=== PATIENT | female | born 1950 | race Caucasian/White ===

== ENCOUNTER 2020-02-27 21:18 | Inpatient (IN) | payer MEDICARE, OTHER ==
[~2020-02-27] VITALS: Ht 162.6 cm; Wt 37.6 kg
--- NOTE | 2020-02-27 21:38 | NUR ---
BIBRA FOR EVAL FOR S/P UNWITNESS FALL. PATIENT IS A0X4. DENIES ANY PAIN OR DISCOMFORT AT THIS TIME. PATIENT REPORTED FALL AROUND EVENING AND UNSURE IF SHE HIT HER HEAD OR NOT. PATIENTIIS PLACE IN BED 1,PATIENT IS PLACED ON MONITOR. WILL CONT TO MONITOR.
--- NOTE | 2020-02-27 21:38 | NUR ---
ECG tech at bed side
--- NOTE | 2020-02-27 21:42 | NUR ---
lab and x ray at bed side
[2020-02-27 21:58] LABS: BASOPHILS # (AUTO) 0.1 /CMM (0.0-0.2); BASOPHILS % (AUTO) 1.1 % (0.0-2.0); EOSINOPHILS % (AUTO) 2.2 % (0.0-6.0); HEMATOCRIT 34 % (33-45); HEMOGLOBIN 11.1 g/dL (11.5-14.8); LYMPHOCYTES # (AUTO) 1.1 /CMM (0.8-4.8); LYMPHOCYTES % (AUTO) 8.2 % (20.0-44.0); MEAN CORPUSCULAR HGB CONC 33 g/dl (31.0-36.0); MEAN CORPUSCULAR VOLUME 90 fL (82-100); MONOCYTES # (AUTO) 1.3 /CMM (0.1-1.30); MONOCYTES % (AUTO) 9.8 % (2.0-12.0); NEUTROPHILS # (AUTO) 10.3 /CMM (1.8-8.9); NEUTROPHILS % (AUTO) 78.7 % (43.0-81.0); PLATELET COUNT (AUTO) 236 /CMM (150-450); RED BLOOD CELL COUNT(AUTO) 3.76 MIL/uL (4.0-5.2); WHITE BLOOD COUNT (AUTO) 13.1 K/uL (4.3-11.0)
[2020-02-27] MEDS ORDERED: IV NS 0.9% 500 ML BAG IV ONE (22:00)
--- NOTE | 2020-02-27 22:04 | NUR ---
URINE COLLETECTED VIA STRAIGHT CATH AND SENT TO LAB.
--- NOTE | 2020-02-27 22:05 | NUR ---
IV STARTED ON LEFT AC SALINE #18G, NS IS RUNNING WELL.
[2020-02-27 22:10] LABS: CALCIUM, SERUM 8.5 mg/dL (8.5-10.1); CREATININE 0.5 mg/dL (0.6-1.3); POTASSIUM 4.1 mmol/L (3.5-5.1)
[2020-02-27 22:11] LABS: APPEARANCE,URINE CLOUDY (CLEAR); BILIRUBIN,URINE NEGATIVE (NEGATIVE); BLOOD, URINE NEGATIVE Ery/uL (NEGATIVE); COLOR,URINE YELLOW (YELLOW); KETONES,URINE NEGATIVE (NEGATIVE); LEUKOCYTE ESTERASE ,URINE MODERATE (NEGATIVE); NITRITE, URINE NEGATIVE (NEGATIVE); PROTEIN,URINE NEGATIVE (NEGATIVE); UGLUCOSE NEGATIVE (NEGATIVE); UROBILINOGEN,URINE 0.2 EU/dL (0.2)
--- NOTE | 2020-02-27 22:24 | NUR ---
back from ct
[2020-02-27 22:26] LABS: ALANINE AMINOTRANSFERASE 21 U/L (12-78); ALBUMIN 2.7 g/dL (3.4-5.0); ALKALINE PHOSPHATASE 90 U/L (46-116); ASPARTATE AMINOTRANSFERASE 20 U/L (15-37); BILIRUBIN,DIRECT 0.1 mg/dL (0.0-0.2); BILIRUBIN,TOTAL 0.3 mg/dL (0.2-1.0); LIPASE 212 U/L (73-393); TOTAL PROTEIN, SERUM 6.1 g/dL (6.4-8.2)
[2020-02-27 22:42] LABS: RBC,URINE 0-2 /HPF (0-2)
[2020-02-27 22:43] LABS: BACTERIA,URINE Many /HPF (None Seen); SQUAMOUS EPITHELIAL CELL,UR Few /HPF (None Seen); URINE AMORPHOUS URATE Many /HPF (None Seen); YEAST,URINE Many /HPF (None Seen)
--- NOTE | 2020-02-27 23:45 | NUR ---
CALLED THE [facility] ASKED FOR THE MED'S LIST TO BE FAXED OVER
[2020-02-28] VITALS (8 sets, daily range): BP systolic 92–142; BP diastolic 54–80
[2020-02-28] MEDS ORDERED: POLY17PO4 PO (00:25)
[2020-02-28] MEDS ORDERED: ASCO500W7 PO (00:25)
[2020-02-28] MEDS ORDERED: ASPI-1169 PO (00:25)
[2020-02-28] MEDS ORDERED: CHOL3000 PO (00:25)
[2020-02-28] MEDS ORDERED: METO25TA6 PO (00:25)
[2020-02-28] MEDS ORDERED: FERR325T28 PO (00:25)
[2020-02-28] MEDS ORDERED: ATOR80TA PO (00:25)
[2020-02-28] MEDS ORDERED: MULT-754 PO (00:25)
[2020-02-28] MEDS ORDERED: RISP1TAB7 PO (00:25)
[2020-02-28] MEDS ORDERED: CEFTRIAXONE 1GM BAG (ER ONLY) 50 ML IV ONE (00:59)
[2020-02-28] MEDS ORDERED: CEFTRIAXONE 1 G in IV D5W 50 ML IV ONE (01:00)
[2020-02-28] MEDS ORDERED: IV NS 0.9% 1,000 ML IV ONE (01:00)
--- NOTE | 2020-02-28 01:04 | NUR ---
BED ASSIGNMENT 304-2
--- NOTE | 2020-02-28 01:16 | NUR ---
Gave report to nurse Fox for ethan.
--- NOTE | 2020-02-28 02:15 | NUR ---
GRAIN PICKER: ADMISSION 69 y/o female transferred from ED by bed. Patient is lethargic upon initial assessment, does not respond verbally, able to open eyes. Skin assessment done, sacrum redness, Mepilex foam applied. Patient is on room air with Oxygen sat. in high 90's. Fall;Aspiration; Skin precaution maintained.
--- NOTE | 2020-02-28 02:18 | NUR ---
PATIENT TRANSFERED TO 3RD FLOOR ROOM 304 UNDER ACLS PROTOCOL.
[2020-02-28] MEDS ORDERED: IV D5/0.45 NACL 1,000 ML IV PRN (03:00)
[2020-02-28] MEDS ORDERED: CEFEPIME 1 GM in IV D5W 50 ML IV SCH (03:00)
[2020-02-28] MEDS ORDERED: ONDANSETRON HCL/PF 4 MG/2 ML VIAL IV PRN (03:00)
[2020-02-28] MEDS ORDERED: ACETAMINOPHEN 325 MG TABLET PO PRN ×2 (03:00)
--- NOTE | 2020-02-28 03:17 | NUR ---
ADMISSION ORDERS Called spoke with Keyon Nogueira. Reviewed home medications with MD, labs in AM, IVF/Abx telephone/read back orders with MD. Orders faxed to Pharmacy. Per Dr. Angeles he will come in am.
[2020-02-28] MEDS ORDERED: Z GUARD REMEDY 2 OZ OINT TP PRN (05:00)
[2020-02-28] MEDS ORDERED: CEFEPIME 1 GM VIAL ONE (05:09)
--- NOTE | 2020-02-28 06:45 | NUR ---
ELECTRONIC WARFARE OFFICER: END OF SHIFT REPORT Patient in bed. This morning at 0530 LOC improving A/O x1 (previous Lethargic) slow to respond verbally when asked, follow simple commands. Sinus Tach HR 106 in the Tele monitor. IVF infusing, on IV Abx. Afebrile. Denies pain, no c/o N/V. Plan for PT/ST/Wound consult. Fall; Aspiration; Skin precaution maintained. Will endorse to oncoming RN.
[2020-02-28 06:46] LABS: BASOPHILS # (AUTO) 0.1 /CMM (0.0-0.2); BASOPHILS % (AUTO) 1.3 % (0.0-2.0); HEMATOCRIT 34 % (33-45); HEMOGLOBIN 11.3 g/dL (11.5-14.8); LYMPHOCYTES % (AUTO) 10.2 % (20.0-44.0); MEAN CORPUSCULAR HGB CONC 33 g/dl (31.0-36.0); MEAN CORPUSCULAR VOLUME 91 fL (82-100); MONOCYTES % (AUTO) 9.6 % (2.0-12.0); NEUTROPHILS # (AUTO) 7.7 /CMM (1.8-8.9); NEUTROPHILS % (AUTO) 75.9 % (43.0-81.0); PLATELET COUNT (AUTO) 240 /CMM (150-450); RED BLOOD CELL COUNT(AUTO) 3.74 MIL/uL (4.0-5.2); WHITE BLOOD COUNT (AUTO) 10.2 K/uL (4.3-11.0)
[2020-02-28 07:14] LABS: ALBUMIN 2.6 g/dL (3.4-5.0); BILIRUBIN,TOTAL 0.2 mg/dL (0.2-1.0); CALCIUM, SERUM 8.4 mg/dL (8.5-10.1); CREATININE 0.5 mg/dL (0.6-1.3); POTASSIUM 3.8 mmol/L (3.5-5.1); TOTAL PROTEIN, SERUM 6.1 g/dL (6.4-8.2)
--- NOTE | 2020-02-28 07:15 | NUR ---
ms rn received on bed, awake,oriented x1,somewhat lethargic, not in any form of distress, respirations even and unlabored,no sob noted,no evidence of pain at this time,all needs attended.
[2020-02-28 07:17] LABS: THYROID STIMULATING HORMONE 1.662 uIU/mL (0.358-3.74)
[2020-02-28] MEDS ORDERED: FLUT16SP16 NS (07:44)
[2020-02-28] MEDS ORDERED: BISA10SU11 RC (07:44)
[2020-02-28] MEDS ORDERED: ASCO-495 PO (07:44)
[2020-02-28] MEDS ORDERED: MINE133E RC (07:44)
[2020-02-28] MEDS ORDERED: MAGN400O6 PO (07:44)
[2020-02-28] MEDS ORDERED: MULT-447 PO (07:44)
[2020-02-28] MEDS ORDERED: ACET-868 PO (07:45)
--- NOTE | 2020-02-28 08:20 | NUR ---
MS LUNSFORD BREAKFAST SERVED,TOLERATED WELL, PATIENT NEEDS SOLID FOODS, WILL ORDER LATER.
--- NOTE | 2020-02-28 08:49 | NUR ---
WOUND CARE CONSULT: PT PRESENTS WITH SACRAL SCAR, PRESENT ON ADMISSION. PT IS VERY THIN AND BONY. RECOMMENDATIONS MADE FOR SKIN PROTECTION. DISCUSSED WITH NURSING STAFF. PT IS ON VIDA ISOFLEX LOW AIRLOSS BED. WILL SEE PRN. ZULETA IN AGREEMENT WITH PLAN OF CARE. Addendum: 02/28/20 at 0850 by AGUS SHEIKH WNDNU Amended: Links added.
--- NOTE | 2020-02-28 10:25 | NUR ---
MS RN WAS SEEN BY DR. ANTONIO Rizo/ ORDERS MADE AND CARRIED OUT.
[2020-02-28] MEDS: FERROUS SULFATE (325 MG) 325 MG/TAB TABLET PO SCH ×2 (10:45→17:39)
[2020-02-28] MEDS: ASPIRIN 81 MG TAB.CHEW PO SCH (10:45)
[2020-02-28] MEDS: PANTOPRAZOLE 40 MG TABLET.DR PO SCH (10:49)
[2020-02-28] MEDS: CHOLECALCIFEROL 1,000 UNIT TABLET (VIT D3) PO SCH (10:49)
[2020-02-28] MEDS: ASCORBIC ACID 500 MG TABLET PO SCH (10:50)
[2020-02-28] MEDS: MULTIVIT W/MINERALS 1 TAB TABLET PO SCH (10:50)
[2020-02-28] MEDS: risperiDONE 1 MG TABLET PO SCH ×2 (10:50→17:40)
[2020-02-28] MEDS: POLYETHYLENE GLYCOL 3350 17 GM POWD.PACK PO SCH (10:50)
[2020-02-28] MEDS: METOPROLOL TARTRATE 25 MG TABLET PO SCH ×2 (10:51→17:40)
[2020-02-28] MEDS: ENSURE ENLIVE CHOC 237 ML CAN PO SCH ×2 (12:00→17:00)
[2020-02-28] MEDS: ENOXAPARIN SODIUM 30 MG/0.3 ML DISP.SYRIN SQ SCH (13:47)
--- NOTE | 2020-02-28 15:19 | NUR ---
ms rn on bed, no distress noted.
[2020-02-28] MEDS: CEFEPIME 1 GM in IV D5W 50 ML IV SCH (18:17)
--- NOTE | 2020-02-28 19:00 | NUR ---
ms rn on bed,no distress noted,all needs attended.
--- NOTE | 2020-02-28 19:25 | NUR ---
TRANSCRIPTION MANAGER OPEN NOTES PATIENT IS LAYING IN BED. A/O X1. ON RA, NO SOB/ ACUTE RESPIRATORY DISTRESS NOTED. IV IN R FOREARM #22G IS PATENT AND INTACT. BED IS IN LOWEST LOCKED POSITION WITH SIDE RAILS UP X3, SEMI FOWLERS. CALL LIGHT IS WITHIN REACH. WILL CONTINUE TO MONITOR.
[2020-02-28] MEDS ORDERED: ATORVASTATIN 40 MG TABLET PO SCH (22:00)
[2020-02-29] VITALS: BP 121/66
[2020-02-29] MEDS: CEFEPIME 1 GM in IV D5W 50 ML IV SCH (05:09)
[2020-02-29 06:21] LABS: BASOPHILS # (AUTO) 0.2 /CMM (0.0-0.2); BASOPHILS % (AUTO) 1.1 % (0.0-2.0); EOSINOPHILS % (AUTO) 1.2 % (0.0-6.0); HEMATOCRIT 36 % (33-45); LYMPHOCYTES # (AUTO) 1.1 /CMM (0.8-4.8); LYMPHOCYTES % (AUTO) 7.6 % (20.0-44.0); MEAN CORPUSCULAR HGB CONC 33 g/dl (31.0-36.0); MEAN CORPUSCULAR VOLUME 90 fL (82-100); MONOCYTES # (AUTO) 0.9 /CMM (0.1-1.30); MONOCYTES % (AUTO) 6.6 % (2.0-12.0); NEUTROPHILS # (AUTO) 12.1 /CMM (1.8-8.9); NEUTROPHILS % (AUTO) 83.5 % (43.0-81.0); PLATELET COUNT (AUTO) 260 /CMM (150-450); RED BLOOD CELL COUNT(AUTO) 3.99 MIL/uL (4.0-5.2); WHITE BLOOD COUNT (AUTO) 14.5 K/uL (4.3-11.0)
--- NOTE | 2020-02-29 06:31 | NUR ---
TELE CLOSE NOTES PATIENT IS LAYING IN BED. A/O X1, STILL APPEARS LETHARGIC. ON RA, NO SOB/ ACUTE RESPIRATORY DISTRESS NOTED. TELE MONITOR READING ST, 100. IV IN RIGHT FOREARM #22G IS PATENT AND INTACT. SHOWS NO SIGNS OF PAIN/ DISTRESS. BED IS IN LOWEST LOCKED POSITION WITH SIDE RAILS UP X3, SEMI FOWLERS. CALL LIGHT IS WITHIN REACH. BED ALARM ON. WILL ENDORSE TO AM NURSE.
[2020-02-29 06:41] LABS: CALCIUM, SERUM 8.8 mg/dL (8.5-10.1); CREATININE 0.6 mg/dL (0.6-1.3); POTASSIUM 3.8 mmol/L (3.5-5.1)
--- NOTE | 2020-02-29 07:29 | NUR ---
SPECIAL SHOPPER OPENING NOTES BEDSIDE ENDORSEMENT DONE. PATIENT IS IN BED RESTING, RESPONSIVE TO VERBAL AND TACTILE SENSATIONS, A/O X1. BREATHING EVEN AND UNLABORED, TOLERATING ROOM AIR, NOT IN ACUTE DISTRESS. ON TELE MONITORING, READING OF SR W/ HR AT 90'S, NO CARDIAC DISTRESS NOTED. IV ON RIGHT FOREARM #22 INTACT AND PATENT. SAFETY PRECAUTIONS IN PLACE: BED LOCKED AND ON LOWEST POSITION, SR UP X2, CALL LIGHT W/IN REACH. WILL CONTINUE TO MONITOR.
[2020-02-29 08:00] VITALS: BP 99/56
[2020-02-29] MEDS: POLYETHYLENE GLYCOL 3350 17 GM POWD.PACK PO SCH (08:18)
[2020-02-29] MEDS: CHOLECALCIFEROL 1,000 UNIT TABLET (VIT D3) PO SCH (08:19)
[2020-02-29] MEDS: ASCORBIC ACID 500 MG TABLET PO SCH (08:21)
[2020-02-29] MEDS: PANTOPRAZOLE 40 MG TABLET.DR PO SCH (08:21)
[2020-02-29] MEDS: ASPIRIN 81 MG TAB.CHEW PO SCH (08:21)
[2020-02-29] MEDS: MULTIVIT W/MINERALS 1 TAB TABLET PO SCH (08:22)
[2020-02-29] MEDS: risperiDONE 1 MG TABLET PO SCH (08:22)
[2020-02-29] MEDS: FERROUS SULFATE (325 MG) 325 MG/TAB TABLET PO SCH (08:22)
[2020-02-29] MEDS: ENSURE ENLIVE CHOC 237 ML CAN PO SCH ×2 (08:26→12:19)
[2020-02-29 08:27] VITALS: BP 99/56
[2020-02-29] MEDS: METOPROLOL TARTRATE 25 MG TABLET PO SCH (08:27)
--- NOTE | 2020-02-29 10:52 | NUR ---
Content Management Consultant met with patient today to complete a psychosocial assessment. Reason for assessment is next of kin. Wood Floor Layer contacted [facility] . Per MOHIT Mallory, patient has been self-responsible. Per MOHIT Mallory, patient did not have family, friends, and did not even know her neighbors names and contact prior to arrival at [facility]. SW to remain available for all needs regarding this patient.
[2020-02-29] MEDS: ENOXAPARIN SODIUM 30 MG/0.3 ML DISP.SYRIN SQ SCH (10:54)
--- NOTE | 2020-02-29 13:32 | NUR ---
RN NOTES SPOKE W/ PAWAN RN, AND INFORMED ABOUT PATIENT'S DISCHARGE BACK TO [facility] W/ DISCHARGE INSTRUCTIONS PROVIDED.
--- NOTE | 2020-02-29 14:50 | NUR ---
CONTINUOUS IMPROVEMENT COACH NOTES PATIENT DISCHARGED BACK TO [facility] AT 1420 VIA GURNEY ACCOMPANIED BY 2 PARAMEDICS. A/O X2-3, BREATHING EVEN AND UNLABORED ON ROOM AIR, NOT IN ACUTE DISTRESS. KEPT CLEAN AND COMFORTABLE. PHOTOS TAKEN OF SKIN CONDITIONS AND PLACED IN CHART. IV ON RIGHT FOREARM KEPT INTACT FOR CONTINUATION OF IV ATB THERAPY. PATIENT REPORT AND DISCHARGE INSTRUCTIONS GIVEN TO JONN VILLALTA. PER PATIENT, SHE VERBALIZED THAT SHE RECEIVED THE FLU SHOT AND PNEUMONIA VACCINE THIS 01/2020. PATIENT HAS NO BELONGING. MD AND CHARGE NURSE AWARE OF DISCHARGE.
== END 2020-02-29 14:45 | DRG 306 ==
LOC: ER 21:21 → TELE 02-28 01:05
PROVIDERS: ADMIT Internal Medicine; ATTEND Internal Medicine
DX: I08.0 Rheumatic disorders of both mitral and aortic valves (principal); E43 Unspecified severe protein-calorie malnutrition; N39.0 Urinary tract infection, site not specified; Z68.1 Body mass index [BMI] 19.9 or less, adult; J98.11 Atelectasis; R55 Syncope and collapse; J44.9 Chronic obstructive pulmonary disease, unspecified; D50.9 Iron deficiency anemia, unspecified; E78.5 Hyperlipidemia, unspecified; F20.9 Schizophrenia, unspecified; I27.20 Pulmonary hypertension, unspecified; K59.00 Constipation, unspecified; Z90.81 Acquired absence of spleen; R00.0 Tachycardia, unspecified; W19.XXXA Unspecified fall, initial encounter; Y93.9 Activity, unspecified; Y92.89 Other specified places as the place of occurrence of the external cause
CPT/HCPCS: 36415; 70450-TC; 71045-TC; 80048-TC; 80053-TC; 80061-TC; 80076-TC; 81000-TC; 82378; 83540-TC; 83690-TC; 84443-TC; 84484-TC; 85025-TC; 85610-TC; 87081-TC; 87086-TC; 87186-TC; 92526; 92611-TC; 93307-TC; 93880-TC; 97112-TC; 97116-TC; 97530-TC; C9803-CS; G0378; J0692; J0696; J1650; J3490; J7030; J7040; J7060